=== PATIENT | male | born 1990 | race Caucasian/White ===

== ENCOUNTER 2020-07-21 14:16 | Outpatient (CLI) | payer BC ==
--- NOTE | 2020-07-21 15:57 | MRI ---
MR CERVICAL SPINE WITHOUT CONTRAST: 07/21/20 INDICATION: Heavy weightlifting injury about two weeks ago with left arm and neck pain. COMPARISON: Prior CT cervical spine dated 11/07/09 from [facility]. FINDINGS: There is some straightening of the normal cervical lordosis. The visualized aspects of the posterior fossa appear within normal limits. No definite acute fracture is demonstrated. There are small multilevel bulges seen at C4-5, C5-6, C6-7 and C7-T1. There is str aightening of the normal cervical lordosis. At C2-C3, there is no appreciable central canal or neural foraminal narrowing. At C3-4, there is no appreciable central canal or neural foraminal narrowing. At C4-5, there is a broad based bulge but no appreciable central canal or neural foraminal narrowing. At C5-6, there is a broad based bulge without appreciable central canal or neural foraminal narrowing . At C6-7, there is a broad based bulge with a superimposed right paracentral disc protrusion. The disc protrusion causes mild ventral effacement of the right ventral lateral spinal cord without cord signal abnormality. There is also mild to moderate enc roachment on the right nerve roots at this level. Left neural foramina is patent. At C7-T1, there is a broad based bulge without appreciable central canal nad neural foraminal narrowi ng. IMPRESSION: 1. Mild spondylosis of the cervical spine. 2. Right paracentral disc protrusion at C6-7 is causing mild right ventral lateral effacement of the spinal cord as well as mild to moderate encroachment on the exiting nerve root on the right at C 6-7. POS: [facility]
== END 2020-07-21 14:17 | disposition home or self-care (01) ==
LOC: TBSIIMAG 14:16
PROVIDERS: ATTEND Internal Medicine
DX: M47.22 Other spondylosis with radiculopathy, cervical region (principal); M50.123 Cervical disc disorder at C6-C7 level with radiculopathy
CPT/HCPCS: 72141